=== PATIENT | female | born 1995 | race Caucasian/White ===

== ENCOUNTER 2019-07-17 19:16 | Observation (INO) ==
--- NOTE | 2019-07-17 19:26 | Emergency Department Note ---
Disposition Clinical Impression: Anxiety Disposition: Still a Patient Condition: Fair Referrals: Nabil Yuan CNP [Primary Care Provider] - Forms: ED Satisfaction Letter Time of Disposition: 03:30 General Adult HPI - General Stated complaint: Panic Attack, Dyspnea, No Feelings Time Seen by Provider: 07/17/19 19:23 Source: patient Mode of arrival: ambulatory Limitations: no limitations Nursing Notes Reviewed: Yes Vital Signs Reviewed: Yes - History of Present Illness HPI Narrative: Patient is a 23-year-old female past medical history of anxiety resents the ED for evaluation of multiple complaints from headache, blurred vision, throat pain, chest pain, shortness of breath, numbness and tingling in her hands, vaginal spotting, and feeling like she is unable to talk about her problems. Patient states that she is working overtime right now that she has been working overtime since the beginning of her and only took 2 weeks off post p regnancy that her does not work so she has to provide for the family. Denies SI/HI or hallucinations. - Related Data Home Medications Medication Instructions Recorded Confirmed Buspirone HCl [Buspar] 7.5 mg PO BID 07/10/19 07/17/19 Norgestimate-Ethinyl Estradiol 1 each PO DAILY 07/10/19 07/17/19 [Sprintec 28 Day Tablet] LORazepam [Ativan] 0.5 mg PO BID PRN 07/17/19 07/17/19 Sertraline [Zoloft] 25 mg PO HS 07/17/19 07/17/19 Allergies Allergy/AdvReac Type Severity Reaction Status Date / Time morphine Allergy Hives Verified 07/17/19 19:28 Penicillins [PCN] Allergy Hives Verified 07/17/19 19:28 All systems ED: reviewed and negative except as stated. Review of Systems: As Per HPI Constitutional: Denies: fever, chills Neurological: Denies: headache, weakness, numbness, paresthesias, confusion Psychiatric: Reports: anxiety. Denies: depression, suicidal thoughts, homicidal thoughts, auditory hallucinations, visual hallucinations Past Medical History - Past Medical History Attestation: Yes The following information was validated with the patient. 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 EYES: PERRL, no scleral icterus. NOSE: The nose is normal in appearance without rhinorrhea RESP: Normal chest excursion with respiration; breath sounds clear and equal bilaterally; no wheezes, rhonchi, or rales CARD: Regular rhythm, without murmurs, rub or gallop ABD: Non-distended; non-tender, soft,without rigidity, rebound or guarding SKIN: Normal for age and race; warm and dry; no apparent lesions NEUROLOGICAL: Patient is alert and oriented times three. Cranial nerves III- XII are intact. Sensory and motor functions are intact. Strength is 5/5 for flexion and extension in all 4 extremities. Patellar DTRS are equal and intact. Finger to nose testing is equal and normal bilaterally. PSYCH: Very anxious. Tearful at times. Depressed. Denies SI/HI. Paranoid of health and asking if pepsi is harmful for her to drink. Course Course Narrative: Initially discussed with patient that I reviewed her lab work over the course of her past 2 visits this week and is unremarkable. Discussed providing her with resources or if she would like to talk with someone from our 1A team that is an option as well she chose the the option to talk with someone she she will undergo a medical clearance to be seen by psych. - Reevaluation(s) Reevaluation #1: Patient will be admitted to 1A service once a bed is available. They do not have beds at this time, so patient will have to wait till morning for an available bed. She is being admitted voluntarily, so if she chooses to leave she is free to go. Vital Signs Temperature 98.5 F 07/17/19 19:21 Pulse Rate 84 07/17/19 19:21 Respiratory Rate 18 07/17/19 19:21 Blood Pressure 137/99 07/17/19 19:21 O2 Sat by Pulse Oximetry 100 07/17/19 19:21 Temperature 98.5 F 07/17/19 19:21 Pulse Rate 58 07/17/19 23:59 Respiratory Rate 16 07/17/19 23:59 Blood Pressure 150/93 07/17/19 23:59 O2 Sat by Pulse Oximetry 99 07/17/19 23:59 Oxygen Delivery Oxygen Delivery Room Air Medical Decision Making - Medical Records Medical records reviewed: Yes I reviewed the patient's medical records. - Lab Data Lab results reviewed: Yes I reviewed the patient's lab results. Result diagrams: 07/17/19 20:30 07/17/19 20:30 Lab Results 07/17/19 07/17/19 07/17/19 Range/Units 20:12 20:12 20:18 WBC (4.3-11.1) K/mcL RBC (3.82-4.97) M/mcL Hgb (11.5-15.4) g/dL Hct (35.3-44.9) % MCV (83.0-100.0) fL MCH (28.0-33.3) pg MCHC (31.6-35.5) g/dL RDW (11.5-14.5) % Plt Count (140-400) K/mcL MPV (9.4-12.4) fL Immature Gran % (0-4) % Seg Neutrophils % % Lymphocytes % % Monocytes % % Eosinophils % % Basophils % % Neutrophils # (1.6-8.9) K/mcL Lymphocytes # (0.6-4.6) K/mcL Monocytes # (0.0-1.3) K/mcL Eosinophils # (0.0-0.6) K/mcL Basophils # (0.0-0.2) K/mcL Sodium (136-145) mEq/L Potassium (3.5-5.1) mEq/L Chloride (98-107) mEq/L Carbon Dioxide (23-29) mEq/L BUN (6-20) mg/dL Creatinine (0.60-1.20) mg/dL Est GFR ( Amer) (> 60) Est GFR (Non-Af Amer) (> 60) BUN/Creatinine Ratio (6-26) Glucose (70-105) mg/dL Calculated Osmolality (280-300) Calcium (8.6-10.3) mg/dL TSH (0.340-5.600) mcIU/mL Urine Color Yellow (Yellow) Urine Clarity Clear (Clear) Urine pH 6.0 (5.0-8.0) pH Units Ur Specific [place] 1.013 (1.010-1.025) Urine Protein Negative (Neg-Trace) mg/dL Urine Glucose (UA) Normal (Normal) mg/dL Urine Ketones Negative (Negative) mg/dL Urine Blood Negative (Negative) Urine Nitrite Negative (Negative) Urine Bilirubin Negative (Negative) Urine Urobilinogen Normal (Normal) mg/dL Ur Leukocyte Esterase Negative (Negative) Urine Test Negative (Negative) Salicylates (15.0-30.0) mg/dL Urine Opiates Screen Negative (Iejcbu=922) ng/mL Ur Buprenorphine Scrn Negative (Cutoff=5) ng/mL Acetaminophen (10-20) mcg/mL Ur Barbiturates Screen Negative (Wkornq=653) ng/mL Ur Phencyclidine Scrn Negative (Cutoff=25) ng/mL Ur Amphetamines Screen Negative (Xcgkpq=1874) ng/mL U Benzodiazepines Scrn Negative (Bzvohx=437) ng/mL Urine Cocaine Screen Negative (Cutoff= 300) ng/mL U Marijuana (THC) Screen Negative (Cutoff = 50) ng/mL Ur Drug Screen Interp See Below Ethyl Alcohol (Less than 10) mg/dL 07/17/19 07/17/19 Range/Units 20:30 20:30 WBC 7.5 (4.3-11.1) K/mcL RBC 4.11 (3.82-4.97) M/mcL Hgb 11.8 (11.5-15.4) g/dL Hct 35.4 (35.3-44.9) % MCV 86.1 (83.0-100.0) fL MCH 28.7 (28.0-33.3) pg MCHC 33.3 (31.6-35.5) g/dL RDW 13.0 (11.5-14.5) % Plt Count 324 (140-400) K/mcL MPV 9.3 L (9.4-12.4) fL Immature Gran % 0.3 (0-4) % Seg Neutrophils % 66.8 % Lymphocytes % 27.2 % Monocytes % 4.8 % Eosinophils % 0.4 % Basophils % 0.5 % Neutrophils # 5.0 (1.6-8.9) K/mcL Lymphocytes # 2.0 (0.6-4.6) K/mcL Monocytes # 0.4 (0.0-1.3) K/mcL Eosinophils # 0.0 (0.0-0.6) K/mcL Basophils # 0.0 (0.0-0.2) K/mcL Sodium 138 (136-145) mEq/L Potassium 3.6 (3.5-5.1) mEq/L Chloride 111 H (98-107) mEq/L Carbon Dioxide 22 L (23-29) mEq/L BUN 8 (6-20) mg/dL Creatinine 0.65 (0.60-1.20) mg/dL Est GFR ( Amer) > 60 (> 60) Est GFR (Non-Af Amer) > 60 (> 60) BUN/Creatinine Ratio 12 (6-26) Glucose 89 (70-105) mg/dL Calculated Osmolality 284 (280-300) Calcium 9.2 (8.6-10.3) mg/dL TSH 1.773 (0.340-5.600) mcIU/mL Urine Color (Yellow) Urine Clarity (Clear) Urine pH (5.0-8.0) pH Units Ur Specific [place] (1.010-1.025) Urine Protein (Neg-Trace) mg/dL Urine Glucose (UA) (Normal) mg/dL Urine Ketones (Negative) mg/dL Urine Blood (Negative) Urine Nitrite (Negative) Urine Bilirubin (Negative) Urine Urobilinogen (Normal) mg/dL Ur Leukocyte Esterase (Negative) Urine Test (Negative) Salicylates < 2.5 L (15.0-30.0) mg/dL Urine Opiates Screen (Nypubz=756) ng/mL Ur Buprenorphine Scrn (Cutoff=5) ng/mL Acetaminophen < 10 L (10-20) mcg/mL Ur Barbiturates Screen (Lwuwqa=498) ng/mL Ur Phencyclidine Scrn (Cutoff=25) ng/mL Ur Amphetamines Screen (Lluvxx=7587) ng/mL U Benzodiazepines Scrn (Vyddky=073) ng/mL Urine Cocaine Screen (Cutoff= 300) ng/mL U Marijuana (THC) Screen (Cutoff = 50) ng/mL Ur Drug Screen Interp Ethyl Alcohol < 10 (Less than 10) mg/dL - EKG Data EKG #1 EKG attestation: Yes I reviewed and interpreted this EKG. EKG results narrative: EKG done at 20:07 shows sinus rhythm at a rate of 78 bpm. Normal axis. Intervals within normal limits. No signs of ischemia.
[2019-07-17] MEDS ORDERED: diazePAM 2 MG TABLET PO STA (19:54)
--- NOTE | 2019-07-17 20:17 | Emergency Department Note ---
Disposition Clinical Impression: Anxiety Disposition: Admitted As Inpatient Condition: Fair Referrals: Nabil Yuan CNP [Primary Care Provider] - Forms: ED Satisfaction Letter Time of Disposition: 03:30 General Adult HPI - General Chief complaint: ED Chest Pain Stated complaint: Panic Attack, Dyspnea, No Feelings Time Seen by Provider: 07/17/19 19:23 Source: patient Mode of arrival: ambulatory Limitations: no limitations Nursing Notes Reviewed: Yes Vital Signs Reviewed: Yes - History of Present Illness Pain Scale: 10 - Related Data Home Medications Medication Instructions Recorded Confirmed Buspirone HCl [Buspar] 7.5 mg PO BID 07/10/19 07/17/19 Norgestimate-Ethinyl Estradiol 1 each PO DAILY 07/10/19 07/17/19 [Sprintec 28 Day Tablet] LORazepam [Ativan] 0.5 mg PO BID PRN 07/17/19 07/17/19 Sertraline [Zoloft] 25 mg PO HS 07/17/19 07/17/19 Allergies Allergy/AdvReac Type Severity Reaction Status Date / Time morphine Allergy Hives Verified 07/17/19 19:28 Penicillins [PCN] Allergy Hives Verified 07/17/19 19:28 Constitutional: Denies: fever, chills Neurological: Denies: headache, weakness, numbness, paresthesias, confusion Psychiatric: Reports: anxiety. 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 - Social History Smoking Status: Never smoker Smokeless Tobacco Status: No Alcohol use: Reports: none Drug use: Reports: none Physical Exam - General Limitations: no limitations General appearance: alert, anxious Course Vital Signs Temperature 98.5 F 07/17/19 19:21 Pulse Rate 84 07/17/19 19:21 Respiratory Rate 18 07/17/19 19:21 Blood Pressure 137/99 07/17/19 19:21 O2 Sat by Pulse Oximetry 100 07/17/19 19:21 Temperature 98.5 F 07/17/19 19:21 Pulse Rate 58 07/17/19 23:59 Respiratory Rate 16 07/17/19 23:59 Blood Pressure 150/93 07/17/19 23:59 O2 Sat by Pulse Oximetry 99 07/17/19 23:59 Oxygen Delivery Oxygen Delivery Room Air Medical Decision Making - Lab Data Lab results reviewed: Yes I reviewed the patient's lab results. Result diagrams: 07/17/19 20:30 07/17/19 20:30 Lab Results 07/17/19 07/17/19 07/17/19 Range/Units 20:12 20:12 20:18 WBC (4.3-11.1) K/mcL RBC (3.82-4.97) M/mcL Hgb (11.5-15.4) g/dL Hct (35.3-44.9) % MCV (83.0-100.0) fL MCH (28.0-33.3) pg MCHC (31.6-35.5) g/dL RDW (11.5-14.5) % Plt Count (140-400) K/mcL MPV (9.4-12.4) fL Immature Gran % (0-4) % Seg Neutrophils % % Lymphocytes % % Monocytes % % Eosinophils % % Basophils % % Neutrophils # (1.6-8.9) K/mcL Lymphocytes # (0.6-4.6) K/mcL Monocytes # (0.0-1.3) K/mcL Eosinophils # (0.0-0.6) K/mcL Basophils # (0.0-0.2) K/mcL Sodium (136-145) mEq/L Potassium (3.5-5.1) mEq/L Chloride (98-107) mEq/L Carbon Dioxide (23-29) mEq/L BUN (6-20) mg/dL Creatinine (0.60-1.20) mg/dL Est GFR ( Amer) (> 60) Est GFR (Non-Af Amer) (> 60) BUN/Creatinine Ratio (6-26) Glucose (70-105) mg/dL Calculated Osmolality (280-300) Calcium (8.6-10.3) mg/dL TSH (0.340-5.600) mcIU/mL Urine Color Yellow (Yellow) Urine Clarity Clear (Clear) Urine pH 6.0 (5.0-8.0) pH Units Ur Specific [place] 1.013 (1.010-1.025) Urine Protein Negative (Neg-Trace) mg/dL Urine Glucose (UA) Normal (Normal) mg/dL Urine Ketones Negative (Negative) mg/dL Urine Blood Negative (Negative) Urine Nitrite Negative (Negative) Urine Bilirubin Negative (Negative) Urine Urobilinogen Normal (Normal) mg/dL Ur Leukocyte Esterase Negative (Negative) Urine Test Negative (Negative) Salicylates (15.0-30.0) mg/dL Urine Opiates Screen Negative (Vhogbp=221) ng/mL Ur Buprenorphine Scrn Negative (Cutoff=5) ng/mL Acetaminophen (10-20) mcg/mL Ur Barbiturates Screen Negative (Gdlkyp=295) ng/mL Ur Phencyclidine Scrn Negative (Cutoff=25) ng/mL Ur Amphetamines Screen Negative (Kqtbut=7767) ng/mL U Benzodiazepines Scrn Negative (Dxrbbh=494) ng/mL Urine Cocaine Screen Negative (Cutoff= 300) ng/mL U Marijuana (THC) Screen Negative (Cutoff = 50) ng/mL Ur Drug Screen Interp See Below Ethyl Alcohol (Less than 10) mg/dL 07/17/19 07/17/19 Range/Units 20:30 20:30 WBC 7.5 (4.3-11.1) K/mcL RBC 4.11 (3.82-4.97) M/mcL Hgb 11.8 (11.5-15.4) g/dL Hct 35.4 (35.3-44.9) % MCV 86.1 (83.0-100.0) fL MCH 28.7 (28.0-33.3) pg MCHC 33.3 (31.6-35.5) g/dL RDW 13.0 (11.5-14.5) % Plt Count 324 (140-400) K/mcL MPV 9.3 L (9.4-12.4) fL Immature Gran % 0.3 (0-4) % Seg Neutrophils % 66.8 % Lymphocytes % 27.2 % Monocytes % 4.8 % Eosinophils % 0.4 % Basophils % 0.5 % Neutrophils # 5.0 (1.6-8.9) K/mcL Lymphocytes # 2.0 (0.6-4.6) K/mcL Monocytes # 0.4 (0.0-1.3) K/mcL Eosinophils # 0.0 (0.0-0.6) K/mcL Basophils # 0.0 (0.0-0.2) K/mcL Sodium 138 (136-145) mEq/L Potassium 3.6 (3.5-5.1) mEq/L Chloride 111 H (98-107) mEq/L Carbon Dioxide 22 L (23-29) mEq/L BUN 8 (6-20) mg/dL Creatinine 0.65 (0.60-1.20) mg/dL Est GFR ( Amer) > 60 (> 60) Est GFR (Non-Af Amer) > 60 (> 60) BUN/Creatinine Ratio 12 (6-26) Glucose 89 (70-105) mg/dL Calculated Osmolality 284 (280-300) Calcium 9.2 (8.6-10.3) mg/dL TSH 1.773 (0.340-5.600) mcIU/mL Urine Color (Yellow) Urine Clarity (Clear) Urine pH (5.0-8.0) pH Units Ur Specific [place] (1.010-1.025) Urine Protein (Neg-Trace) mg/dL Urine Glucose (UA) (Normal) mg/dL Urine Ketones (Negative) mg/dL Urine Blood (Negative) Urine Nitrite (Negative) Urine Bilirubin (Negative) Urine Urobilinogen (Normal) mg/dL Ur Leukocyte Esterase (Negative) Urine Test (Negative) Salicylates < 2.5 L (15.0-30.0) mg/dL Urine Opiates Screen (Kwfcbo=708) ng/mL Ur Buprenorphine Scrn (Cutoff=5) ng/mL Acetaminophen < 10 L (10-20) mcg/mL Ur Barbiturates Screen (Lalfno=594) ng/mL Ur Phencyclidine Scrn (Cutoff=25) ng/mL Ur Amphetamines Screen (Csrjht=0338) ng/mL U Benzodiazepines Scrn (Rlexbh=589) ng/mL Urine Cocaine Screen (Cutoff= 300) ng/mL U Marijuana (THC) Screen (Cutoff = 50) ng/mL Ur Drug Screen Interp Ethyl Alcohol < 10 (Less than 10) mg/dL - EKG Data EKG #1 EKG attestation: Yes I reviewed and interpreted this EKG. EKG results narrative: EKG shows a normal sinus rhythm with sinus arrhythmia. Ventricular rate 78. No ST segment elevation or depression. No ectopy. No significant change from prior EKG dated 07/12/2019. Attestation Statement - Attestation Attestation: I, Yanick Aceves MD, personally evaluated this patient and discussed their management with the resident physician. I reviewed the resident's note and agree with the documented findings, medical decision making, and plan of care. I reviewed the residents documentation and agree with the residents assessment and plan of care. I have personally had face to face time with the patient. I personally supervised and was present for the weiss/critical portions of the following procedures completed by the resident: EKG interpretation. 23-year-old female persisted emergency department with a complaint of severe anxiety. Patient just had a baby less than 2 months ago. This was her third child. She works and went back to work shortly after delivery. 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 She complains over the past month she has been calm progressively more anxious. She just feels scared and paranoid all the t [place]. She is afraid she is going to . She has chest pain and pain in her throat and neck. She describes this as just tightness. She has numbness and tingling that goes up into her head. A revision. Numbness and tingling in her extremities. Brown vaginal spotting. She has been seen several times for this. She has not talked with psychiatry. She denies drug use other than occasional marijuana and none recently. She denies alcohol use. On examination patient is a well-developed well-nourished well-appearing female in no acute distress. She is alert and oriented 3. There is no cyanosis or diaphoresis. Patient is extremely anxious. She is fidgety and tearful. Breath sounds are clear and equal bilaterally. Heart regular rate and rhythm. Abdomen soft and nontender with normal bowel sounds. No gross focal neurological deficits. EKG shows a normal sinus rhythm with sinus arrhythmia. Ventricular rate 78. No ST segment elevation or depression. No ectopy. No significant change from prior EKG dated 07/12/2019. Labs reviewed. Patient medically cleared for psychiatric evaluation. [address] psychiatry department was consulted to evaluate patient in the emergency department. After evaluation the patient does not meet criteria for involuntary admission however she is willing to sign in as a voluntary psychiatric admission. Patient was accepted to the [address] psychiatric unit however they currently have no beds and she will wait here in the emergency department until morning when someone is discharged in a bed becomes available.
[2019-07-17 20:24] LABS: Bilirubin,Urine Negative (Negative); Blood,Urine Negative (Negative); Clarity,Urine Clear (Clear); Color,Urine Yellow (Yellow); Glucose,Urine (UA) Normal (Normal); Ketones,Urine Negative (Negative); Leukocyte Esterase,Urine Negative (Negative); Nitrite,Urine Negative (Negative); Protein,Urine Negative (Neg-Trace); Specific Gravity,Urine 1.013 (1.010-1.025); Urobilinogen,Urine Normal (Normal)
[2019-07-17 20:34] LABS: Amphetamine Screen,Urine Negative ng/mL (Cutoff=1000); Barbiturate Screen,Urine Negative ng/mL (Cutoff=200); Benzodiazepines Screen,Urine Negative ng/mL (Cutoff=200); Cannabinoid Screen,Urine Negative ng/mL (Cutoff = 50); Cocaine Screen,Urine Negative ng/mL (Cutoff= 300); Opiate Screen,Urine Negative ng/mL (Cutoff=300); Phencyclidine Screen,Urine Negative ng/mL (Cutoff=25)
[2019-07-17 20:54] LABS: Basophils % 0.5 %; Eosinophils % 0.4 %; Hematocrit 35.4 % (35.3-44.9); Hemoglobin 11.8 g/dL (11.5-15.4); Immature Granulocytes % 0.3 % (0-4); Lymphocytes % 27.2 %; Mean Corpuscular HGB Conc 33.3 g/dL (31.6-35.5); Mean Corpuscular Hemoglobin 28.7 pg (28.0-33.3); Mean Corpuscular Volume 86.1 fL (83.0-100.0); Mean Platelet Volume 9.3 fL (9.4-12.4); Monocytes # 0.4 K/mcL (0.0-1.3); Monocytes % 4.8 %; Platelet Count 324 K/mcL (140-400); Red Blood Count 4.11 M/mcL (3.82-4.97); Segmented Neutrophils % 66.8 %; White Blood Count 7.5 K/mcL (4.3-11.1)
[2019-07-17 21:10] LABS: Acetaminophen < 10 mcg/mL (10-20); BUN/Creatinine Ratio 12 (6-26); Blood Urea Nitrogen 8 mg/dL (6-20); Calcium 9.2 mg/dL (8.6-10.3); Carbon Dioxide 22 mEq/L (23-29); Chloride 111 mEq/L (98-107); Ethanol < 10 mg/dL (Less than 10); Glucose 89 mg/dL (70-105); Osmolality,Calculated 284 (280-300); Potassium 3.6 mEq/L (3.5-5.1); Salicylate < 2.5 mg/dL (15.0-30.0); Sodium 138 mEq/L (136-145); eGFR For African Americans > 60 (> 60); eGFR For Non-African Americans > 60 (> 60)
[2019-07-17] MEDS ORDERED: Ibuprofen 400 MG TABLET PO ONE (21:38)
[2019-07-17] MEDS ORDERED: Ondansetron ODT 4 MG TAB.RAPDIS SL ONE (22:15)
[2019-07-18] MEDS ORDERED: diazePAM 5 MG TABLET PO ONE ×2 (01:39→08:16)
[2019-07-18 01:52] LABS: Thyroid Stimulating Hormone 1.773 mcIU/mL (0.340-5.600)
--- NOTE | 2019-07-18 07:10 | Emergency Department Note ---
Disposition Clinical Impression: Anxiety Disposition: Admitted As Inpatient Condition: Fair Referrals: Nabil Yuan CNP [Primary Care Provider] - Forms: ED Satisfaction Letter Time of Disposition: 11:07 General Adult HPI - General Chief complaint: ED Chest Pain Stated complaint: Panic Attack, Dyspnea, No Feelings Time Seen by Provider: 07/17/19 19:23 Source: patient Mode of arrival: ambulatory Limitations: no limitations - History of Present Illness Pain Scale: 0 - Related Data Home Medications Medication Instructions Recorded Confirmed Buspirone HCl [Buspar] 7.5 mg PO BID 07/10/19 07/17/19 Norgestimate-Ethinyl Estradiol 1 each PO DAILY 07/10/19 07/17/19 [Sprintec 28 Day Tablet] LORazepam [Ativan] 0.5 mg PO BID PRN 07/17/19 07/17/19 Sertraline [Zoloft] 25 mg PO HS 07/17/19 07/17/19 Allergies Allergy/AdvReac Type Severity Reaction Status Date / Time morphine Allergy Hives Verified 07/17/19 19:28 Penicillins [PCN] Allergy Hives Verified 07/17/19 19:28 Constitutional: Denies: fever, chills Neurological: Denies: headache, weakness, numbness, paresthesias, confusion Psychiatric: Reports: anxiety. 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 Aceves. Patient is here under her own request for evaluation of panic disorder and depression. She does not meet criteria for pink slip at this time but the psychiatric team do feel that it would be most appropriate for her to be admitted for further evaluation and symptomatic control. Her medical clearance evaluation was unremarkable. She is resting comfortably in the bed in her vital signs been stable. She has required additional medication for her anxiety on arrival but otherwise is been tolerant of resting in the emergency room since the initial presentation. My repeat physical exam is unremarkable. Please see the previously documented physical exam by the overnight physicians. Patient is otherwise resting comfortably. Will monitor here in the emergency room until her disposition is completed. If she decides to leave she is able to do so secondary to this being a voluntary admission at this time. Patient is otherwise stable. No other concerns. - Reevaluation(s) Reevaluation #1: Patient is having symptoms of panic attack again at this time. Patient is d escribing tightness and burning sensation to her chest as well as abdominal discomfort. Patient did have spotting and what is described as blood clots from her vaginal area. She did deliver a child in May. test is negative. She is otherwise stable. At this point repeat EKG the second dose of Valium will be given. Patient is otherwise in no distress. She is still waiting for placement for psychiatric evaluation at our facility. Time: 08:18 Reevaluation #2: Patient was accepted to the psychiatric floor. Admission was placed at this time. No other intervention required Time: 11:07 Vital Signs Temperature 98.5 F 07/17/19 19:21 Pulse Rate 84 07/17/19 19:21 Respiratory Rate 18 07/17/19 19:21 Blood Pressure 137/99 07/17/19 19:21 O2 Sat by Pulse Oximetry 100 07/17/19 19:21 Temperature 98.5 F 07/17/19 19:21 Pulse Rate 89 07/18/19 06:57 Respiratory Rate 16 07/18/19 06:57 Blood Pressure 101/68 07/18/19 06:57 O2 Sat by Pulse Oximetry 99 07/18/19 06:57 Oxygen Delivery Oxygen Delivery Room Air Medical Decision Making - MDM Narrative Medical decision making narrative: Panic attack, depression - Medical Records Medical records reviewed: Yes I reviewed the patient's medical records. - Lab Data Lab results reviewed: Yes I reviewed the patient's lab results. Result diagrams: 07/17/19 20:30 07/17/19 20:30 Lab Results 07/17/19 07/17/19 07/17/19 Range/Units 20:12 20:12 20:18 WBC (4.3-11.1) K/mcL RBC (3.82-4.97) M/mcL Hgb (11.5-15.4) g/dL Hct (35.3-44.9) % MCV (83.0-100.0) fL MCH (28.0-33.3) pg MCHC (31.6-35.5) g/dL RDW (11.5-14.5) % Plt Count (140-400) K/mcL MPV (9.4-12.4) fL Immature Gran % (0-4) % Seg Neutrophils % % Lymphocytes % % Monocytes % % Eosinophils % % Basophils % % Neutrophils # (1.6-8.9) K/mcL Lymphocytes # (0.6-4.6) K/mcL Monocytes # (0.0-1.3) K/mcL Eosinophils # (0.0-0.6) K/mcL Basophils # (0.0-0.2) K/mcL Sodium (136-145) mEq/L Potassium (3.5-5.1) mEq/L Chloride (98-107) mEq/L Carbon Dioxide (23-29) mEq/L BUN (6-20) mg/dL Creatinine (0.60-1.20) mg/dL Est GFR ( Amer) (> 60) Est GFR (Non-Af Amer) (> 60) BUN/Creatinine Ratio (6-26) Glucose (70-105) mg/dL Calculated Osmolality (280-300) Calcium (8.6-10.3) mg/dL TSH (0.340-5.600) mcIU/mL Urine Color Yellow (Yellow) Urine Clarity Clear (Clear) Urine pH 6.0 (5.0-8.0) pH Units Ur Specific [place] 1.013 (1.010-1.025) Urine Protein Negative (Neg-Trace) mg/dL Urine Glucose (UA) Normal (Normal) mg/dL Urine Ketones Negative (Negative) mg/dL Urine Blood Negative (Negative) Urine Nitrite Negative (Negative) Urine Bilirubin Negative (Negative) Urine Urobilinogen Normal (Normal) mg/dL Ur Leukocyte Esterase Negative (Negative) Urine Test Negative (Negative) Salicylates (15.0-30.0) mg/dL Urine Opiates Screen Negative (Vyxzco=175) ng/mL Ur Buprenorphine Scrn Negative (Cutoff=5) ng/mL Acetaminophen (10-20) mcg/mL Ur Barbiturates Screen Negative (Qskkqn=398) ng/mL Ur Phencyclidine Scrn Negative (Cutoff=25) ng/mL Ur Amphetamines Screen Negative (Wvnnvv=6335) ng/mL U Benzodiazepines Scrn Negative (Tlyxna=168) ng/mL Urine Cocaine Screen Negative (Cutoff= 300) ng/mL U Marijuana (THC) Screen Negative (Cutoff = 50) ng/mL Ur Drug Screen Interp See Below Ethyl Alcohol (Less than 10) mg/dL 07/17/19 07/17/19 Range/Units 20:30 20:30 WBC 7.5 (4.3-11.1) K/mcL RBC 4.11 (3.82-4.97) M/mcL Hgb 11.8 (11.5-15.4) g/dL Hct 35.4 (35.3-44.9) % MCV 86.1 (83.0-100.0) fL MCH 28.7 (28.0-33.3) pg MCHC 33.3 (31.6-35.5) g/dL RDW 13.0 (11.5-14.5) % Plt Count 324 (140-400) K/mcL MPV 9.3 L (9.4-12.4) fL Immature Gran % 0.3 (0-4) % Seg Neutrophils % 66.8 % Lymphocytes % 27.2 % Monocytes % 4.8 % Eosinophils % 0.4 % Basophils % 0.5 % Neutrophils # 5.0 (1.6-8.9) K/mcL Lymphocytes # 2.0 (0.6-4.6) K/mcL Monocytes # 0.4 (0.0-1.3) K/mcL Eosinophils # 0.0 (0.0-0.6) K/mcL Basophils # 0.0 (0.0-0.2) K/mcL Sodium 138 (136-145) mEq/L Potassium 3.6 (3.5-5.1) mEq/L Chloride 111 H (98-107) mEq/L Carbon Dioxide 22 L (23-29) mEq/L BUN 8 (6-20) mg/dL Creatinine 0.65 (0.60-1.20) mg/dL Est GFR ( Amer) > 60 (> 60) Est GFR (Non-Af Amer) > 60 (> 60) BUN/Creatinine Ratio 12 (6-26) Glucose 89 (70-105) mg/dL Calculated Osmolality 284 (280-300) Calcium 9.2 (8.6-10.3) mg/dL TSH 1.773 (0.340-5.600) mcIU/mL Urine Color (Yellow) Urine Clarity (Clear) Urine pH (5.0-8.0) pH Units Ur Specific [place] (1.010-1.025) Urine Protein (Neg-Trace) mg/dL Urine Glucose (UA) (Normal) mg/dL Urine Ketones (Negative) mg/dL Urine Blood (Negative) Urine Nitrite (Negative) Urine Bilirubin (Negative) Urine Urobilinogen (Normal) mg/dL Ur Leukocyte Esterase (Negative) Urine Test (Negative) Salicylates < 2.5 L (15.0-30.0) mg/dL Urine Opiates Screen (Tmrxsd=574) ng/mL Ur Buprenorphine Scrn (Cutoff=5) ng/mL Acetaminophen < 10 L (10-20) mcg/mL Ur Barbiturates Screen (Abtamt=929) ng/mL Ur Phencyclidine Scrn (Cutoff=25) ng/mL Ur Amphetamines Screen (Sgcvsu=2596) ng/mL U Benzodiazepines Scrn (Ebwagj=796) ng/mL Urine Cocaine Screen (Cutoff= 300) ng/mL U Marijuana (THC) Screen (Cutoff = 50) ng/mL Ur Drug Screen Interp Ethyl Alcohol < 10 (Less than 10) mg/dL - EKG Data EKG #1 EKG attestation: Yes I reviewed and interpreted this EKG. EKG results narrative: EKG shows sinus rhythm. Heart rate of 74. MA interval 153. QRS duration of 80. QTC of 439. Odem appears to be normal. No acute signs of ST segment elevation or abnormality. No acute signs of WPW or Brugada syndrome. Previous EKG has no acute interval changes or abnormalities. Patient is otherwise stable.
--- NOTE | 2019-07-18 13:43 | Electrocardiograph Report ---
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
--- NOTE | 2019-07-18 14:00 | Electrocardiograph Report ---
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
[2019-07-18] MEDS ORDERED: Haloperidol Lactate 5 MG/ML VIAL IM PRN (14:35)
[2019-07-18] MEDS ORDERED: *HR* LORazepam 1 MG TABLET PO PRN (14:35)
[2019-07-18] MEDS ORDERED: Ibuprofen 400 MG TABLET PO PRN (14:35)
[2019-07-18] MEDS ORDERED: Mag Hydrox/Al Hydrox/Simeth 30 ML UDC PO PRN (14:35)
[2019-07-18] MEDS ORDERED: MOM Conc 10 ML UD.LIQ PO PRN (14:35)
[2019-07-18] MEDS ORDERED: traZODone 50 MG TABLET PO PRN (14:35)
[2019-07-18] MEDS ORDERED: *HR* LORazepam 2 MG/ML VIAL IM PRN (14:35)
[2019-07-18] MEDS ORDERED: hydrOXYzine pamoate 25 MG CAPSULE PO ONE (14:45)
[2019-07-18] MEDS: hydrOXYzine pamoate 25 MG CAPSULE PO PRN (22:25)
[2019-07-19 10:08] VITALS: BP 106/76
--- NOTE | 2019-07-19 10:49 | Discharge Summary ---
Date of Encounter: 07/19/19 Time of Encounter: 08:00 History of Present Illness Chief complaint: panic attacks Admitted From: Emergency Dept History of Present Illness: Patient is a 23-year-old female past medical history of anxiety resents the ED for evaluation of multiple complaints from headache, blurred vision, throat pain, chest pain, shortness of breath, numbness and tingling in her hands, vaginal spotting, and feeling like she is unable to talk about her problems. She been in the emergency room several times for similar complaints and had been getting increasingly upset about that panic attacks. While she did not have active suicidal thoughts, ideations, or plans she did make a comment in the emergency room that she could not keep going on like this with the panic attacks. 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 She reports that she has panic attacks several times a week. She says that when she has them she has numbness in her fingers, feels short of breath, feels she is going to , has nausea and diarrhea and occasionally vomiting. She reports that she has concerns about having additional attacks but she does not avoid specific places. She can identify specific trigger. They do not wake her up from sleep but she says she frequently does wake up with general anxiety and worry about her children has to check on them. She reports other symptoms of generalized anxiety including worrying about a number of different topics. She reports some sad mood and decrease interest. No suicidal or homicidal thoughts, ideations, or plans. No psychosis. No manic symptoms. Past Med Surg Social Fam HX - Past Medical History Medical history: asthma, other - Past Psychiatric History Psychiatric history: Reports: panic disorder. Denies: prior suicide attempt, previous psychiatric hospitalization Past psychiatric history details: She has never been in a psychiatric hospital before. She sees a psychiatrist at [facility]. She has a history of cutting in middle school and high school. She had one prior suicide attempt years ago by overdose but she did not need treatment. Family psychiatric history: Yes Family Psychiatric History Details: He reports her mother, sister, and father have anxiety. Family History of Suicide: None - Past Surgical History Surgical History: other - Social History Smoking Status: Never smoker Smokeless Tobacco Status: No Alcohol use: none Drug use: none Occupational status: employed Current living situation: Home Activity Level: Independent ambulation Recent Out of Country Travel Within the Last 8 Weeks: No Exposure or Possible Exposure to Illness During Travel: No Additional social history: She has 3 children. 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 They are losing their apartment and going to move with her mother at the end of month. - Family History Father Name: sena johnson Age: 56 Family Member Ethnicity: Non- Living Status: Still Living Hx Family Cardiac Disorders: No Hx Family Respiratory Disorders: No Hx Family Cancer: No Hx Family GI Disorders: No Hx Family Genitourinary Disorders: No Hx Family Endocrine Disorder: No Hx Family Musculoskeletal Disorders: No Hx Family Neuromuscular Disorders: No Hx Family Neurologic Disorders: No Hx Family HEENT Disorders: No Hx Family Autoimmune Disorders: No Hx Family Reproductive Disorders: No Hx Family Psychosocial Disorders: Yes (depression) Hx Family Medical Disorders: No Medications - Discharge Medications Prescriptions: Buspirone HCl [Buspar] 10 mg PO BID #30 tablet Transmission Status: Pending to [facility] traZODone [TraZODone] 50 mg PO HS PRN #15 tablet PRN Reason: Insomnia Transmission Status: Pending to [facility] hydrOXYzine pamoate [Vistaril] 25 mg PO TID PRN #45 capsule PRN Reason: Anxiety Transmission Status: Pending to [facility] Sertraline [Zoloft] 50 mg PO DAILY #15 tablet Transmission Status: Pending to [facility] Norgestimate-Ethinyl Estradiol [Sprintec 28 Day Tablet] 1 tab PO DAILY 07/10/19 [History] Buspirone HCl [Buspar] 10 mg PO BID #30 tablet 07/19/19 [Rx] Sertraline [Zoloft] 50 mg PO DAILY #15 tablet 07/19/19 [Rx] hydrOXYzine pamoate [Vistaril] 25 mg PO TID PRN #45 capsule 07/19/19 [Rx] traZODone [TraZODone] 50 mg PO HS PRN #15 tablet 07/19/19 [Rx] Allergy/AdvReac Type Severity Reaction Status Date / Time morphine Allergy Hives Verified 07/17/19 19:28 Penicillins [PCN] Allergy Hives Verified 07/17/19 19:28 Review of Systems Constitutional: Reports: weakness Eyes: Denies: eye pain Ears, Nose, Throat: Denies: ear pain Cardiovascular: Denies: chest pain Respiratory: Denies: cough Gastrointestinal: Denies: abdominal pain Genitourinary female: Denies: urgency Musculoskeletal: Denies: back pain Integumentary: Denies: rash Neurological: Reports: weakness Psychiatric: Reports: depression, anxiety, panic attacks. Denies: suicidal ideation, homicidal ideation, auditory hallucinations, visual hallucinations Endocrine: Reports: fatigue Hematologic/Lymphatic: Denies: easy bleeding Allergic/Immunologic: Denies: facial swelling Exam - HEENT Head exam IM: Present: atraumatic Eye exam IM: Present: normal appearance ENT exam IM: Present: normal exam - Neurological Neurological exam: Present: CN II-XII intact - Respiratory Respiratory exam IM: Absent: respiratory distress - GI/Abdominal GI/Abdominal exam IM: Present: no peritoneal signs - Extremities Extremities exam IM: Present: full ROM - Skin Skin exam IM: Present: dry, warm - Constitutional Vitals: Temp Pulse Resp BP Pulse Ox 98.4 F 117 14 106/76 97 07/19/19 09:00 07/19/19 09:00 07/19/19 09:00 07/19/19 09:00 07/19/19 09:00 General appearance: age & developmentally appropriate, well-groomed, well- nourished - Musculoskeletal Gait: normal Station: relaxed Strength & Tone: normal for patient - Psychiatric Patient Orientation: Yes Person, Yes Time, Yes Place, Yes Circumstance Level of alertness: Alert Behavior: calm, cooperative Psychomotor activity: Normal Eye Contact: Maintains Eye Contact Mood Description: Euthymic/stable Patient description of mood: good Affect description: congruent with mood, full range Speech Volume: Normal Speech pattern: normal rate, normal rhythm, normal tone, fluent, spontaneous Language & Vocabulary: consistent with education Thought Process: Linear, Goal Oriented Thought Content: No Suicidal ideation, No Homicidal ideation, No Overt delusions Perceptual Disturbances: No Auditory hallucinations, No Visual hallucinations Attention Span Ability: Capable of Focused Attention Memory Description: Grossly Intact Patient Reliability: Reliable Historian Fund of knowledge: Yes abstraction ability, Yes average, Yes aware of current events Intelligence Estimate: Average Judgment: Good Insight: Full Results - Labs Labs: Laboratory Last Values WBC 7.5 K/mcL (4.3-11.1) 07/17/19 20:30 RBC 4.11 M/mcL (3.82-4.97) 07/17/19 20:30 Hgb 11.8 g/dL (11.5-15.4) 07/17/19 20:30 Hct 35.4 % (35.3-44.9) 07/17/19 20:30 MCV 86.1 fL (83.0-100.0) 07/17/19 20:30 MCH 28.7 pg (28.0-33.3) 07/17/19 20: MCHC 33.3 g/dL (31.6-35.5) 07/17/19 20:30 RDW 13.0 % (11.5-14.5) 07/17/19 20:30 Plt Count 324 K/mcL (140-400) 07/17/19 20:30 MPV 9.3 fL (9.4-12.4) L 07/17/19 20:30 Immature Gran % 0.3 % (0-4) 07/17/19 20:30 Seg Neutrophils % 66.8 % 07/17/19 20:30 Lymphocytes % 27.2 % 07/17/19 20:30 Monocytes % 4.8 % 07/17/19 20:30 Eosinophils % 0.4 % 07/17/19 20:30 Basophils % 0.5 % 07/17/19 20:30 Neutrophils # 5.0 K/mcL (1.6-8.9) 07/17/19 20:30 Lymphocytes # 2.0 K/mcL (0.6-4.6) 07/17/19 20:30 Monocytes # 0.4 K/mcL (0.0-1.3) 07/17/19 20:30 Eosinophils # 0.0 K/mcL (0.0-0.6) 07/17/19 20:30 Basophils # 0.0 K/mcL (0.0-0.2) 07/17/19 20:30 Sodium 138 mEq/L (136-145) 07/17/19 20:30 Potassium 3.6 mEq/L (3.5-5.1) 07/17/19 20:30 Chloride 111 mEq/L (98-107) H 07/17/19 20:30 Carbon Dioxide 22 mEq/L (23-29) L 07/17/19 20:30 BUN 8 mg/dL (6-20) 07/17/19 20:30 Creatinine 0.65 mg/dL (0.60-1.20) 07/17/19 20:30 Est GFR ( Amer) > 60 (> 60) 07/17/19 20:30 Est GFR (Non-Af Amer) > 60 (> 60) 07/17/19 20:30 BUN/Creatinine Ratio 12 (6-26) 07/17/19 20:30 Glucose 89 mg/dL (70-105) 07/17/19 20:30 Calculated Osmolality 284 (280-300) 07/17/19 20: Calcium 9.2 mg/dL (8.6-10.3) 07/17/19 20:30 TSH 1.773 mcIU/mL (0.340-5.600) 07/17/19 20:30 Urine Color Yellow (Yellow) 07/17/19 20:18 Urine Clarity Clear (Clear) 07/17/19 20:18 Urine pH 6.0 pH Units (5.0-8.0) 07/17/19 20:18 Ur Specific [place] 1.013 (1.010-1.025) 07/17/19 20:18 Urine Protein Negative mg/dL (Neg-Trace) 07/17/19 20:18 Urine Glucose (UA) Normal mg/dL (Normal) 07/17/19 20:18 Urine Ketones Negative mg/dL (Negative) 07/17/19 20:18 Urine Blood Negative (Negative) 07/17/19 20:18 Urine Nitrite Negative (Negative) 07/17/19 20:18 Urine Bilirubin Negative (Negative) 07/17/19 20:18 Urine Urobilinogen Normal mg/dL (Normal) 07/17/19 20:18 Ur Leukocyte Esterase Negative (Negative) 07/17/19 20:18 Urine Test Negative (Negative) 07/17/19 20:12 Salicylates < 2.5 mg/dL (15.0-30.0) L 07/17/19 20:30 Urine Opiates Screen Negative ng/mL (Cezysm=317) 07/17/19 20:12 Ur Buprenorphine Scrn Negative ng/mL (Cutoff=5) 07/17/19 20:12 Acetaminophen < 10 mcg/mL (10-20) L 07/17/19 20:30 Ur Barbiturates Screen Negative ng/mL (Llsprs=605) 07/17/19 20:12 Ur Phencyclidine Scrn Negative ng/mL (Cutoff=25) 07/17/19 20:12 Ur Amphetamines Screen Negative ng/mL (Cxpehv=5464) 07/17/19 20:12 U Benzodiazepines Scrn Negative ng/mL (Fgwfee=114) 07/17/19 20:12 Urine Cocaine Screen Negative ng/mL (Cutoff= 300) 07/17/19 20:12 U Marijuana (THC) Screen Negative ng/mL (Cutoff = 50) 07/17/19 20:12 Ur Drug Screen Interp See Below 07/17/19 20:12 Ethyl Alcohol < 10 mg/dL (Less than 10) 07/17/19 20:30 Diagnosis - Discharge Diagnosis (1) Panic disorder Status: Acute Assessment and Plan - Patient/Caregiver Discharge Instructions Activity: resume usual activities as tolerated Diet: regular diet Additional Instructions: Continue current medications. Follow up with outpatient mental health. Encourage continued therapy in a group or individual setting. The patient was discharged to home. - Follow up Plan Follow up with: NONE,PCP [Primary Care Provider] - Functional capacity at discharge: independent ambulation Overall status at discharge: Stable Disposition: Home, Self-Care Provider Date of admission: 07/18/19 11:10 Primary care physician: PCP NONE Discharging clinician: Eliz Jacobo [facility] Course Hospital course: Ms. Durbin is a 23 year old female who was admitted for severe panic attacks which have brought her to the emergency room several times. She was brought to the unit and did well. She had no suicidal or homicidal thoughts, ideations, or plans. Her BuSpar was increased to 10 mg 3 times a day and Zoloft to 50 mg. She was offered as needed Vistaril for anxiety. Patient was educated of diagnosis and the risk-benefit side effects of this alternative treatment options and was monitored for responsiveness and side effects. Mood anxiety sleep and appetite interest improved as did future orientation. Self-harm thoughts subsided, thinking cleared, psychosis resolved, and mood stabilized. Patient was able to attend both individual and group therapy sessions as well as meet with the psychiatrist daily and urged to discuss any medication or treatment issues or other concerns. The patient was educated primarily by verbal means about their diagnosis and manifestations in their life. The option for treatment including group and individual therapy programming was offered to the patient in addition to the use of medications with all their potential risks, benefits, and side effects as well as the risks of not taking medication and non-adhereance were discussed with the patient at length. The patient was given the opportunity to ask questions and was noted to participate in the treatment in the planning process. The patient felt ready and eager to be discharged from the inpatient psychiatric unit to continue on with treatment as an outpatient. The patient agreed that is they were safe for this disposition. The patient was considered to be able to participate in informed consent and decision making with respect to medical, legal, and financial issues of the time of discharge. At the time of discharge the patient adamantly denied any concerns for lethality including suicidal or homicidal thoughts ideations or plans and was future oriented toward ongoing mental health care, medical follow-up and sobriety. Time spent discussing smoking cessation with patient: 3 to 10 minutes Does patient wish to continue nicotine replacement upon disc: No - Time Spent with Patient Total time spent providing and/or coordinating discharge services: 45 Greater than 30 minutes Specific discharge activities: Interval history reviewed. Available labs reviewed . Psychotherapy provided. Patient had an opportunity to ask questions and address concerns. Patient was in agreement with the treatment plan. The risks benefits and side effects of medications were discussed with the patient, including alternatives and treatment. The patient was educated on the abstaining from any alcohol or illicit substances, following up with all scheduled appointments, and taking all medications as prescribed. Procedures - Procedures Procedures: Medication Management, Crisis Stabilization, Supportive Therapy, Group Therapy, Psychoeducational Therapy Quality - Multiple Antipsychotics Patient discharged on 2 or more antipsychotic medications: No
[2019-07-19] MEDS: hydrOXYzine pamoate 25 MG CAPSULE PO PRN (17:44)
== END 2019-07-19 18:20 | disposition home or self-care (01) ==
LOC: EMEROOARM 19:16 → 1ANU 07-18 11:10 → INTOOBSV 07-18 11:10 → 1ANU 07-18 11:28
PROVIDERS: ADMIT Psychiatry & Neurology Psychiatry; ATTEND Psychiatry & Neurology Psychiatry